=== PATIENT | female | born 1990 | race Caucasian/White ===

== ENCOUNTER → 2019-04-10 | Outpatient (CLI) | payer BC, OTHER ==
[2019-04-11 08:51] LABS: Alpha Fetoprotein (M.O.M) 1.53; Gestational Age (days) 3; Human Chorionic Gonadotropin 20.6 IU/mL; Inhibin A (M.O.M.) 1.09; Maternal Age at EDD (Yrs) 30; Smoker No; Unconjugated Estriol (M.O.M.) 1.65
== END | disposition home or self-care (01) ==
LOC: LABWHC1 13:06
PROVIDERS: ATTEND Obstetrics & Gynecology
DX: Z03.79 Encounter for other suspected maternal and fetal conditions ruled out (principal)
CPT/HCPCS: 36415; 82105; 82677; 84702; 86336

== ENCOUNTER 2019-05-23 22:02 | Outpatient (CLI) | payer MEDICAID, OTHER ==
[2019-05-23 23:10] VITALS: BP 140/77; PULSE 87; RESP 18; TEMP 97.3
--- NOTE | 2019-06-01 09:45 | P.MSEPDOC ---
Presenting Problems - Arrival Data Date of Arrival on Unit: 05/23/19 Time of Arrival on Unit: 22:02 Mode of Transport: Ambulatory - Complaint OB-Reason for Admission/Chief Complaint: Pain Comment: pt presents with cramping for the last 2 hours Medical History - Information : 3 Para: 1 Term: 1 : 0 Abortions: Spontaneous or Elective: 1 Number of Living Children: 1 - Gestational Age Gestational Age by BILL (wks/days): 25 Weeks and 4 Days - History Comment: LEEP procedure 10 yrs ago Review of Systems - Review of Systems Constitutional: No problems Breast: No problems ENT: No problems Cardiovascular: No problems Respiratory: No problems Gastrointestinal: No problems Genitourinary: No problems Musculoskeletal: No problems Neurological: No problems Skin: No problems Vital Signs - Temperature Temperature: 97.3 F Temperature Source: Temporal Artery Scan - Pulse Right Brachial Pulse Rate: 87 Pulse Assessment Method: Automatic Cuff - Respirations Respiratory Rate: 18 Oxygen Delivery Method: Room Air - Blood Pressure Right Arm Blood Pressure: 140/77 Blood Pressure Mean: 98 Blood Pressure Source: Automatic Cuff Medical Screen Scoring (Pre) - Cervical Exam Dilation: 0 cm = 0 Effacement: Exam Deferred Membranes: Intact - Uterine Contractions Frequency: N/A Duration: N/A Intensity: N/A - Maternal Vital Signs Maternal Temperature: N/A Maternal Blood Pressure: Systolic >139 = 2 Signs of Preeclampsia: N/A Maternal Respirations: N/A - Maternal Trauma Maternal Trauma: N/A - Assessment - Baby A Baseline FHR: 135 Heart Rate - NICHD Category: Category I (Normal) = 0 Position: N/A Station: N/A - Total Score - Baby A Total Score - Baby A: 2 - Total Score - Baby B Total Score - Baby B: 2 - Total Score - Baby C Total Score - Baby C: 2 - Level of Risk - Baby A Level of Risk - Baby A: Low (0-5) - Level of Risk - Baby B Level of Risk - Baby B: Low (0-5) - Level of Risk - Baby C Level of Risk - Baby C: Low (0-5) Physician Notification (Pre) - Physician Notified Physician Notified Date: 05/23/19 Physician Notified Time: 22:30 Physician/Practitioner Notifed:: Dr. Baxter Spoke With: Dr. Hurtubise New Order Received: Yes - Notification Comment Comment: discharge pt home, follow up at next scheduled appt or call office tomorrow if any other concerns, increase fluids, rest Disposition - Disposition OB Disposition: Triage, Discharge to home, Written follow up instructions reviewed Discharge Date: 05/23/19 Discharge Time: 22:50 I agree with the RN Medical Screening Exam: Yes Risk & Benefit of care provided described in d/c instruction: Yes Diagnosis: FALSE LABOR BEFORE 37 COMPLETED WEEKS OF GEST, THIRD TRI
== END 2019-05-23 22:50 | disposition home or self-care (01) ==
LOC: FBPOP 22:02
PROVIDERS: ATTEND Obstetrics & Gynecology
DX: O47.03 False labor before 37 completed weeks of gestation, third trimester (principal); Z3A.25 25 weeks gestation of pregnancy
CPT/HCPCS: 99213

== ENCOUNTER 2019-07-23 10:01 | Outpatient (CLI) | payer MEDICAID, OTHER, BC ==
[2019-07-23 12:11] VITALS: BP 113/72; PULSE 98; RESP 14; TEMP 97.3
== END 2019-07-23 12:10 | disposition home or self-care (01) ==
LOC: FBPOP 10:01
PROVIDERS: ATTEND Obstetrics & Gynecology
DX: O26.93 Pregnancy related conditions, unspecified, third trimester (principal); Z3A.34 34 weeks gestation of pregnancy
CPT/HCPCS: 59025; 99213

== ENCOUNTER 2019-08-07 19:35 | Outpatient (CLI) | payer MEDICAID, OTHER, BC ==
[2019-08-07 20:18] VITALS: BP 122/76; PULSE 110; RESP 16; TEMP 97.6
--- NOTE | 2019-09-01 11:18 | P.MSEPDOC ---
Presenting Problems - Arrival Data Date of Arrival on Unit: 08/07/19 Time of Arrival on Unit: 19:35 Mode of Transport: Ambulatory - Complaint OB-Reason for Admission/Chief Complaint: Possible Onset of Labor Medical History - Information : 3 Para: 1 Term: 1 : 0 Abortions: Spontaneous or Elective: 1 Number of Living Children: 1 - Gestational Age Gestational Age by BILL (wks/days): 36 Weeks and 3 Days Review of Systems - Review of Systems Constitutional: No problems Breast: No problems ENT: No problems Cardiovascular: No problems Respiratory: No problems Gastrointestinal: No problems Genitourinary: No problems Musculoskeletal: No problems Neurological: No problems Skin: No problems Vital Signs - Temperature Temperature: 97.6 F Temperature Source: Oral - Pulse Right Brachial Pulse Rate: 110 Pulse Assessment Method: Automatic Cuff - Respirations Respiratory Rate: 16 Oxygen Delivery Method: Room Air O2 Sat by Pulse Oximetry: 98 - Blood Pressure Right Arm Blood Pressure: 122/76 Blood Pressure Mean: 91 Blood Pressure Source: Automatic Cuff Medical Screen Scoring (Pre) - Cervical Exam Dilation: 1-3 cm = 1 Effacement: More than 50% = 2 Membranes: Intact - Uterine Contractions Frequency: N/A - Maternal Vital Signs Maternal Temperature: N/A Maternal Blood Pressure: N/A Signs of Preeclampsia: N/A Maternal Respirations: N/A - Maternal Trauma Maternal Trauma: N/A - Assessment - Baby A Baseline FHR: 130 Heart Rate - NICHD Category: Category I (Normal) = 0 NST: Reactive Position: N/A Station: N/A - Total Score - Baby A Total Score - Baby A: 3 - Total Score - Baby B Total Score - Baby B: 3 - Total Score - Baby C Total Score - Baby C: 3 - Level of Risk - Baby A Level of Risk - Baby A: Low (0-5) - Level of Risk - Baby B Level of Risk - Baby B: Low (0-5) - Level of Risk - Baby C Level of Risk - Baby C: Low (0-5) Physician Notification (Pre) - Physician Notified Physician Notified Date: 08/07/19 Physician Notified Time: 21:15 Physician/Practitioner Notifed:: Dr. England Spoke With: Dr. England New Order Received: Yes - Notification Comment Comment: Cervical exam shows 1cm dilitated. TOCO showing two contractions in thirty minutes. Aminisure is negative. RN spoke with Dr. England. Reported reactive NST, unchanged cervical exam,. contractions noted every 6-10 minutes. Patient remains comfortable. Vital signs WNL. states patient can be discharged home with instructions to return if needed. Discharge instructions relayed to patient. Patient is in agreement. Disposition - Disposition OB Disposition: Discharge to home Discharge Date: 08/07/19 Discharge Time: 21:25 I agree with the RN Medical Screening Exam: Yes Risk & Benefit of care provided described in d/c instruction: Yes Diagnosis: FALSE LABOR BEFORE 37 COMPLETED WEEKS OF GEST, THIRD TRI
== END 2019-08-07 20:25 | disposition home or self-care (01) ==
LOC: FBPOP 19:35
PROVIDERS: ATTEND Obstetrics & Gynecology
DX: O47.03 False labor before 37 completed weeks of gestation, third trimester (principal); Z3A.36 36 weeks gestation of pregnancy
CPT/HCPCS: 59025; 84112; 99213

== ENCOUNTER 2019-08-26 15:55 | Inpatient (IN) | payer BC, OTHER ==
[2019-08-26] MEDS ORDERED: OXYTOCIN 10 UNIT/ML 1 ML VIAL IM PRN (16:09)
[2019-08-26] MEDS ORDERED: CARBOPROST TROMETHAMINE 250 MCG/ML 1 ML AMP IM PRN (16:09)
[2019-08-26] MEDS ORDERED: PENICILLIN G POTASSIUM 5,000,000 UNIT in DEXTROSE 5% IN WATER 100 ML IVPB STA ×2 (16:09)
[2019-08-26] MEDS ORDERED: TERBUTALINE 1 MG/ML VIAL SQ PRN (16:09)
[2019-08-26] MEDS ORDERED: LIDOCAINE 0.5% (PF) 5 MG/ML (50 ML SDV) SQ PRN (16:09)
[2019-08-26] MEDS ORDERED: METHYLERGONOVINE 0.2 MG/ML 1 ML AMP IM PRN (16:09)
[2019-08-26] MEDS ORDERED: LACTATED RINGERS 1,000 ML IV SCH ×2 (16:15→19:15)
[2019-08-26 16:55] LABS: Basophils % (A) 0 %; Eosinophils # (A) 0.3 k/uL (0-0.7); Eosinophils % (A) 3 %; HCT 38.4 % (34.0-46.0); HGB 13.2 gm/dL (11.4-16.0); Lymphocytes # (A) 1.9 k/uL (1.0-4.8); Lymphocytes % (A) 19 %; MCH 31.7 pg (25.0-35.0); MCHC 34.3 g/dL (31.0-37.0); MCV 92.4 fL (80.0-100.0); Mean Platelet Volume 8.9; Monocytes # (A) 0.6 k/uL (0-1.0); Monocytes % (A) 6 %; Neutrophils # (A) 7.3 k/uL (1.3-7.7); Neutrophils % (A) 70 %; Platelet Count 195 k/uL (150-450); RBC 4.15 m/uL (3.80-5.40); RDW 13.5 % (11.5-15.5); WBC 10.4 k/uL (3.8-10.6)
[2019-08-26] MEDS ORDERED: OXYTOCIN 30 UNITS/500 ML NS 30 UNIT in SALINE 1 500ML.BAG IV SCH (17:00)
[2019-08-26] MEDS ORDERED: ROPIVACAINE 5MG/ML 20ML VIAL ONE (17:55)
[2019-08-26] MEDS ORDERED: SODIUM CHLORIDE 0.9% 100 ML BAG ONE (17:55)
[2019-08-26] MEDS ORDERED: fentaNYL (PF) 50 MCG/ML 5 ML AMP ONE (17:55)
[2019-08-26 18:59] VITALS: BMI 40.6
[2019-08-26] MEDS ORDERED: PENICILLIN G POTASSIUM 2,500,000 UNIT in DEXTROSE 5% IN WATER 100 ML IVPB SCH ×2 (20:30)
--- NOTE | 2019-08-26 21:17 | P.HPOB ---
History of Present Illness H&P Date: 08/26/19 Chief Complaint: I have been leaking fluid since 6:00 this morning This is a 29-year-old white female 4 para 10-1 EDC 10/02/2019 at 39 and one sevenths weeks' gestation. Patient had her routine scheduled office visit this afternoon at which time she reported that she has been leaking clear fluid since 0600 hrs. Pelvic exam was positive for abundant clear fluid with vernix, cervix was 3 cm dilated. Patient was sent from the office for direct admission. Past surgical history cholecystectomy, D&C, LEEP procedure 2008, wisdom teeth extracted. Past medical history significant for HSV, history of gonorrhea in 2009, and a history of depression in the past. Current medications acyclovir 400 mg pills twice daily, vitamin daily. ALLERGIES include sulfa drugs to which reports photosensitivity pain and redness of the eyes from eyedrops. Family history significant for diabetes lymphoma colon cancer cervical cancer aortic aneurysm and meningitis. Obstetric history is significant for blood type A+, rubella status nonimmune. One-hour Glucola 163, 3 hour GTT within normal limits. On exam she is 5 foot 2 inches, 222 pounds, blood pressure 138/80 on admission. General physical exam is within normal limits. Cervix on admission was 3 cm dilated, 80% effaced, -2 station, vertex presentation. heart rate consistent with reactive NST. No HSV lesions noted at this time. Impression: 39 and one sevenths weeks intrauterine , ruptured membranes, history of HSV with no active lesions noted. Plan: Oxytocin per hospital protocol. Epidural may be placed per patient's request. Close maternal and surveillance. Anticipate normal spontaneous vaginal delivery. Review of Systems Constitutional: Reports as per HPI Past Medical History Past Medical History: No Reported History History of Any Multi-Drug Resistant Organisms: None Reported Additional Past Surgical History / Comment(s): Leep procedure Past Psychological History: Anxiety, Depression Smoking Status: Never smoker Past Alcohol Use History: None Reported Past Drug Use History: None Reported Medications and Allergies Home Medications Medication Instructions Recorded Confirmed Type Acyclovir 400 mg PO BID 02/10/19 08/26/19 History Wxs-Jjka-Jryqq Acid 1 cap PO DAILY 02/10/19 08/26/19 History [-U Capsule (formulary)] Allergies Allergy/AdvReac Type Severity Reaction Status Date / Time Sulfa (Sulfonamide Allergy Unknown Verified 08/07/19 19:51 Antibiotics) Exam Vital Signs Temp Pulse Resp BP Pulse Ox 08/26/19 16:03 98.3 F 88 18 138/88 99 Intake and Output 08/26/19 08/26/19 08/26/19 06:59 14:59 22:59 Other: Weight 100.698 kg See dictation under HPI please Results Result Diagrams: 08/26/19 16:38 Assessment and Plan Assessment: 39 and one sevenths weeks intrauterine , early labor. History of HSV with no active lesions or prodrome. Plan: Oxytocin augmentation. Penicillin G prophylaxis. Epidural may be placed at patient's request. Close maternal and surveillance. Anticipate normal spontaneous vaginal delivery. Time with Patient: Less than 30
[2019-08-26] MEDS ORDERED: HYDROCORTISONE 2.5% RECTAL CREAM 30 GM TUBE RECTAL PRN (21:19)
[2019-08-26] MEDS ORDERED: LANOLIN CREAM 5 GM TUBE TOPICAL PRN (21:19)
[2019-08-26] MEDS ORDERED: SIMETHICONE 80 MG CHEWABLE PO PRN (21:19)
[2019-08-26] MEDS ORDERED: diphenhydrAMINE 50 MG CAP PO PRN (21:19)
[2019-08-26] MEDS ORDERED: BENZOCAINE/MENTHOL SPRAY 1 GM/SPRAY AEROSOL TOPICAL PRN (21:19)
[2019-08-26] MEDS ORDERED: HYDROcodone/APAP 5-325MG 1 EACH TAB PO PRN (21:19)
[2019-08-26] MEDS ORDERED: diphenhydrAMINE 25 MG CAP PO PRN (21:19)
[2019-08-26] MEDS ORDERED: WITCH HAZEL 1 EACH MED..PAD TOPICAL PRN (21:19)
[2019-08-26] MEDS ORDERED: diphenhydrAMINE ELIXIR 25 MG/10 ML CUP PO PRN (21:19)
[2019-08-26] MEDS ORDERED: ZOLPIDEM 5 MG TAB PO PRN (21:19)
[2019-08-26] MEDS ORDERED: diphenhydrAMINE 50 MG/ML 1 ML VIAL IVP PRN ×2 (21:19)
--- NOTE | 2019-08-26 21:19 | P.PROBDLV ---
Vaginal Delivery Note - . Vaginal Delivery Note: This is a 29-year-old white female 4 para 10-1 EDC 09/01/2019 at 39 and one sevenths weeks' gestation. Patient presented from the office with a history of spontaneous amniorrhexis which occurred earlier this morning. Clear fluid was noted in the office as well. No herpes prodrome or lesions noted. Please see dictated history and physical for details. Oxytocin augmentation was started per hospital protocol. Epidural was placed per her request. She progressed well through the first stage of labor and was judged to be completely dilated at 2015 hours. She began the second stage of labor at that time. She in the dorsal supine position. The perineal body was prepped and draped in usual sterile fashion. 's head delivered occiput anterior and he restituted accordingly. There was a nuchal cord 1 that was reduced on the perineal body. The right or anterior shoulder was delivered from underneath the pubic symphysis at which time the oropharynx, nasopharynx, and external nares were all bulb suctioned. Patient was officially delivered of a liveborn male infant with scores of 8 and 9 at one and 5 minutes respectively. time 2053 hours. The placenta delivered spontaneously, it was inspected and noted to be intact with trivascular cord at 2056 hours. Perineal body was redraped. Inspection of the cervix, vagina, perineum, periurethral, and perirectal areas revealed no lacerations and no defects. Fundus is firm and in the midline, symmetric and 18 week size upon completion of delivery. Estimated blood loss 300 mL's. Patient is requesting circumcision for her son. She is allowed to begin the bonding experience in the LDR.
[2019-08-26] MEDS ORDERED: OXYTOCIN 20 UNITS/1000 ML NS 1,000 ML IV SCH (21:30)
[2019-08-26] MEDS: ACETAMINOPHEN TAB 325 MG TAB PO PRN (21:51)
[2019-08-27] MEDS: IBUPROFEN 600 MG TAB PO PRN ×3 (01:18→17:39)
[2019-08-27] MEDS: ACETAMINOPHEN TAB 325 MG TAB PO PRN ×2 (04:35→14:56)
--- NOTE | 2019-08-27 07:52 | P.PN ---
Subjective Progress Note Date: 08/27/19 Principal diagnosis: day #1 Objective - Vital Signs Vital signs: Vital Signs Temp 98.1 F 08/27/19 04:00 Pulse 91 08/27/19 04:00 Resp 12 08/27/19 04:00 BP 133/75 08/27/19 04:00 Pulse Ox 97 08/27/19 04:00 Intake & Output 08/26/19 08/27/19 08/27/19 18:59 06:59 18:59 Output Total 300 Balance -300 Weight 100.698 kg Output: Estimated Blood Loss 300 Other: # Voids 2 - Constitutional General appearance: Present: average body habitus, cooperative - EENT Eyes: Present: PERRLA ENT: Present: hearing grossly normal - Neck Neck: Present: normal ROM Thyroid: bilateral: normal size - Respiratory Respiratory: bilateral: CTA - Cardiovascular Rhythm: regular - Gastrointestinal General gastrointestinal: Present: normal bowel sounds - Integumentary Integumentary: Present: normal - Neurologic Neurologic: Present: CNII-XII intact - Musculoskeletal Musculoskeletal: Present: gait normal, strength equal bilaterally - Psychiatric Psychiatric: Present: A&O x's 3, appropriate affect, intact judgment & insight - Labs CBC & Chem 7: 08/26/19 16:38 Assessment and Plan Assessment: Doing well day #1 Plan: Patient choosing to stay an additional day. Continue care. Circumc ision now. Likely discharge home tomorrow morning. Time with Patient: Less than 30
[2019-08-27] MEDS ORDERED: SENNOSIDES-DOCUSATE SODIUM 1 EACH TAB PO SCH (08:00)
[2019-08-27] MEDS ORDERED: MEASLES-MUMPS-RUBELLA VACC/PF 12,500 UNIT/0.5 ML VIAL SQ ONE (13:47)
[2019-08-27 16:30] VITALS: BP 136/80; PULSE 90; RESP 18; TEMP 98.1
--- NOTE | 2019-08-27 21:57 | DS ---
DISCHARGE SUMMARY DATE OF ADMISSION: 08/26/2019 ADMITTING DIAGNOSES: 1. Spontaneous amniorrhexis. 2. Thirty-nine and 1/7 weeks' gestation. DATE OF DISCHARGE: 08/27/2019 DISCHARGE DIAGNOSES: 1. Status post live-born male vaginal delivery. 2. Meconium fluid. This is a 29-year-old female, 4, para 1-0-2-1, EDC 09/01/2019, at 39-1/7 weeks' gestation. Patient presented to the office for her afternoon visit yesterday, at which time she suggested that she felt she was leaking fluid since 0600 hours. On a pelvic exam, clear vaginal fluid was noted, patient was 3 cm dilated, 80% effaced, vertex presentation. She was sent to Labor and Delivery for admission. Her history was remarkable for HSV infections, on Valtrex daily, with no prodrome or lesions noted. Blood type A positive. Group B strep culture is negative. Rubella status non-immune. Please see my dictated history and physical for details. Patient requested an epidural and this was placed without difficulty. She did consent to oxytocin augmentation. She progressed well through the first stage of labor and went on to deliver spontaneously a live-born male with scores of 8 and 9 at one and five minutes, respectively. There was a nuchal cord x1 that was reduced on the perineal body. Perineum was clean and dry; no lacerations or defects. Infant weighed 8 pounds 0 ounces, or 3640 grams. Estimated blood loss recorded of 300 mL. Please see dictated delivery note for details. This morning circumcision on the has been performed. Patient is doing well. She is voiding, ambulating, passing flatus without difficulty. Vital signs are stable and she is afebrile. is going well. Fundus is firm, midline, symmetric, 18-week size. Minimal lochia rubra. The patient is requesting discharge home. She will follow up with me in the office in 6 weeks. I have reminded her no intercourse, tampons or douching. She will use [id number] ibuprofen as needed for pain. I have asked her to call me with any fever, shakes or chills, foul-smelling or copious lochia, with the passage of large blood clots, or indeed with any concerns. She will continue taking her vitamin daily. We have briefly discussed options for contraception, and we will review this further in the office. MMODL / IJN: [id number] /
== END 2019-08-27 22:45 | disposition home or self-care (01) | DRG 806 ==
LOC: 4FBP 15:55
PROVIDERS: ADMIT Obstetrics & Gynecology; ATTEND Obstetrics & Gynecology
PROC: 10E0XZZ Delivery of Products of Conception, External Approach (ICD-10-PCS; principal; 2019-08-26)
PROC: 00HU33Z Insertion of Infusion Device into Spinal Canal, Percutaneous Approach (ICD-10-PCS; principal; 2019-08-26)
PROC: 3E0R3NZ Introduction of Analgesics, Hypnotics, Sedatives into Spinal Canal, Percutaneous Approach (ICD-10-PCS; principal; 2019-08-26)
DX: O69.81X0 Labor and delivery complicated by cord around neck, without compression, not applicable or unspecified (principal); O98.32 Other infections with a predominantly sexual mode of transmission complicating childbirth; Z37.0 Single live birth; A60.00 Herpesviral infection of urogenital system, unspecified; O77.0 Labor and delivery complicated by meconium in amniotic fluid; Z3A.39 39 weeks gestation of pregnancy; Z80.0 Family history of malignant neoplasm of digestive organs; Z80.49 Family history of malignant neoplasm of other genital organs; Z80.7 Family history of other malignant neoplasms of lymphoid, hematopoietic and related tissues; Z83.3 Family history of diabetes mellitus; Z88.2 Allergy status to sulfonamides
CPT/HCPCS: 85025; 86850; 86900; 86901; 90471; 90707

== ENCOUNTER → 2019-11-08 | Outpatient (CLI) | payer BC, OTHER ==
[2019-11-08 08:53] LABS: Basophils # (A) 0.1 k/uL (0-0.2); Basophils % (A) 1 %; Eosinophils # (A) 0.8 k/uL (0-0.7); Eosinophils % (A) 9 %; HCT 43.5 % (34.0-46.0); HGB 14.7 gm/dL (11.4-16.0); Lymphocytes # (A) 2.5 k/uL (1.0-4.8); Lymphocytes % (A) 27 %; MCHC 33.7 g/dL (31.0-37.0); Mean Platelet Volume 7.7; Monocytes # (A) 0.5 k/uL (0-1.0); Monocytes % (A) 5 %; Neutrophils # (A) 5.4 k/uL (1.3-7.7); Neutrophils % (A) 58 %; Platelet Count 277 k/uL (150-450); RBC 4.73 m/uL (3.80-5.40); RDW 12.6 % (11.5-15.5); WBC 9.3 k/uL (3.8-10.6)
== END | disposition home or self-care (01) ==
LOC: LABPAT 08:33
PROVIDERS: ATTEND Obstetrics & Gynecology
DX: Z01.812 Encounter for preprocedural laboratory examination (principal); Z31.84 Encounter for fertility preservation procedure
CPT/HCPCS: 36415; 85025

== ENCOUNTER 2019-11-11 07:38 | Day surgery (SDC) | payer BC, OTHER ==
--- NOTE | 2019-11-07 09:39 | HP ---
HISTORY AND PHYSICAL Surgery on Monday, November 11, 2019 This is a 29-year-old white female, 4, para 2-0-2-2, status post vaginal delivery 08/26/2019, who presents for permanent tubal sterilization. She and her desire no further childbearing. She understands that this procedure is meant to be permanent, however, does have a failure rate and accepts this potential. The risks of surgery have been thoroughly reviewed with the patient as well as the risks of anesthesia, and she would like to proceed. All questions answered. PAST MEDICAL HISTORY: Significant for depression, cholelithiasis, HSV, and gonorrhea in 2009. PAST SURGICAL HISTORY: Cholecystectomy, D and C, LEEP procedure, and wisdom teeth extracted. CURRENT MEDICATIONS: Escitalopram oxalate 10 mg tablet once daily. ALLERGIES: SULFA to which reports redness and photosensitivity, that would be a SULFA EYE DROP. FAMILY HISTORY: Significant for meningitis, diabetes, lymphoma, colon cancer, cervical cancer, and aortic aneurysm. OBSTETRIC HISTORY: Significant for missed AB x2, vaginal deliveries x2, most recently 08/26/2019. SOCIAL HISTORY: Patient is single, she is a smoker daily, she works for the [employer]. PHYSICAL EXAMINATION: On exam, this is a pleasant white female, 5 feet 2 inches, 197 pounds, blood pressure 112/70. HEENT exam reveals no thyromegaly, no cervical lymphadenopathy, normal dentition. Chest is clear to auscultation in all isbell anteriorly and posteriorly. Cardiac exam reveals regular rate and rhythm with no murmur, click, or rub. Breasts are bilaterally symmetric. There is nipple discharge consistent with recent vaginal delivery. There are no discernible lesions or masses, no axillary adenopathy. The abdomen is mildly obese, no organosplenomegaly, active bowel sounds. No CVA tenderness. Extremities reveal no edema, good peripheral pulses are noted. On pelvic exam, cervix is multiparous, uterus is small, anteverted, anteflexed, mobile, nontender, smooth. Adnexa are negative bilaterally, with no tenderness or enlargement. Rectal exam reveals good sphincter tone. IMPRESSION: Undesired fertility. PLAN: We will proceed with laparoscopic tubal ligation utilizing Filshie clips. The risks of surgery, including bleeding, infection, perforation or damage to bowel, bladder, ureters, blood vessels are all discussed in detail. The ACOG pamphlet on this procedure has been given to the patient for her thorough review. Again, she understands the permanent nature of this procedure, but also expects that there is a small but real failure rate with potential . If she ever finds herself amenorrheic or with the signs and symptoms of , she will contact the office immediately for recommendations. YOUSIF / ELMO: [id number] /
[2019-11-08 11:09] VITALS: BMI 36.2
[~2019-11-11 07:38] MED LIST: DEXAMETHASONE SOD PHOSPHATE 10 MG/ML 1 ML VIAL IV ONE; HYDROmorphone 0.5 MG/0.5 ML SYRINGE IVP PRN; LACTATED RINGERS 1,000 ML IV SCH; LIDOCAINE 1% 20 ML VIAL (10MG/ML) FOR IV START INTRADERMA PRN; MIDAZOLAM 2 MG/2 ML VIAL IV PRN; ONDANSETRON 4 MG/2 ML VIAL IVP ONE; Pre Op ABX Message 1 EACH MISC MISCELLANE ONE; fentaNYL (PF) 50 MCG/ML 2 ML AMP IV PRN
[2019-11-11] MEDS ORDERED: BUPIVACAINE (PF) 0.25% 30 ML VIAL SQ ONE ×2 (08:56→09:51)
[2019-11-11] MEDS ORDERED: SUCCINYLCHOLINE CHLORIDE 100 MG/5 ML SYR IV ONE (09:02)
[2019-11-11] MEDS ORDERED: NEOSTIGMINE 1 MG/ML 10 ML VIAL ONE (09:02)
[2019-11-11] MEDS ORDERED: ROCURONIUM BROMIDE 10 MG/ML 10 ML VIAL IV ONE (09:02)
[2019-11-11] MEDS ORDERED: diphenhydrAMINE 50 MG/ML 1 ML VIAL ONE (09:02)
[2019-11-11] MEDS ORDERED: HYDROmorphone (PF) 1 MG/ML ONE (09:02)
[2019-11-11] MEDS ORDERED: PROPOFOL 10 MG/ML 20 ML VIAL IV ONE (09:02)
[2019-11-11] MEDS ORDERED: MIDAZOLAM 2 MG/2 ML VIAL ONE (09:02)
[2019-11-11] MEDS ORDERED: fentaNYL (PF) 50 MCG/ML 2 ML AMP ONE (09:02)
[2019-11-11] MEDS ORDERED: KETOROLAC 30 MG/ML 1 ML VIAL ONE (09:02)
[2019-11-11] MEDS ORDERED: LIDOCAINE 1% INJ 10MG/ML (20 ML MDV) ONE (09:02)
[2019-11-11] MEDS ORDERED: GLYCOPYRROLATE 0.2 MG/ML 2 ML VIAL ONE (09:02)
--- NOTE | 2019-11-11 09:57 | P.OP ---
Date of Procedure: 11/11/19 Preoperative Diagnosis: undesired fertility Postoperative Diagnosis: essentially normal appearing female pelvis Procedure(s) Performed: laparoscopic tubal ligation with Filshie clips Anesthesia: BRIT Surgeon: Margarita Gr Estimated Blood Loss (ml): 50 IV fluids (ml): 300 Urine output (ml): 50 Pathology: none sent Condition: stable Disposition: PACU Description of Procedure: patient is brought to the operating suite where general anesthetic is administered without difficulty. She's placed in the dorsal lithotomy position. The appropriate timeout is performed to assure proper patient and procedural identification. The cervix, vagina, perineal body, and abdomen are all prepped and draped in usual sterile fashion. Urine hCG is negative. Bladder is drained for approximately 50 mL of clear yellow urine. Weighted speculum was placed into the vagina, anterior lip of the cervix is grasped with an Allis clamp. Desoto cannula is placed onto the cervix and attached to the clamp. Speculum is removed. Attention is now drawn to the abdominal wall. A small infraumbilical incision is made. Veress needle is placed and placement is checked with hanging drop technique. Abdomen is insufflated under low filling pressures of 6-9 mmHg for a total of 4.5 L of CO2 gas. The varies needle is removed. Trochars placed and placement is noted to be H or manic. Patient is now placed in Trendelenburg position. A second incision is made suprapubically, and a second trocar is placed under direct visualization, again entry is atraumatic. The uterus is now pushed into the pelvis and placed in a lateral position. The fimbriated end of the left fallopian tube is identified, and a Filshie clip is placed in the isthmic portion with care to traverse the entire diameter of the tube into the mesal salpinx. The same procedure is carried out contralaterally, again fimbriated and is visualized, and again isthmic portion is chosen with clip traversing the entire diameter of the tube into the mesal salpinx. Bilateral ovaries appear normal to inspection. Bilateral pelvic sidewalls, anterior posterior cul-de-sac, uterine surface, all inspected and noted to be clean with no evidence of adhesions or endometriosis. CO2 gas was allowed to diffuse. Trochars are removed under direct visualization and the fascial defects are clean and dry. 4-0 undyed Monocryl is used to close the small incisions. The suprapubic incision does have a small bleeder noted, this is cauterized with electrocautery for good hemostasis. A deeper vpclbo-sa-ifqva suture is placed in the suprapubic incision to aid in hemostasis. Subcuticular Monocryl is used for final closure. The wounds are injected with quarter percent Marcaine without epinephrine to aid in analgesia. The wounds are dressed. Instrumentation is removed from the vagina. All sponge needle and enhancement counts are correct at the end of the procedure. Patient is brought back to the recovery room in good condition with stable vital signs including a pulse of 69, blood pressure 127/84, 98% O2 saturation. Toradol is given prior to leaving the operative suite. Patient will follow-up with me in the office in 2 weeks.
[2019-11-11 10:08] VITALS: TEMP 98.6
[2019-11-11 10:57] VITALS: RESP 16
[2019-11-11] MEDS ORDERED: ACETAMINOPHEN TAB 500 MG TAB PO ONE (11:15)
[2019-11-11 11:20] VITALS: BP 121/82; PULSE 75
== END 2019-11-11 12:09 | disposition home or self-care (01) ==
LOC: OR 07:38
PROVIDERS: ATTEND Obstetrics & Gynecology
DX: Z30.2 Encounter for sterilization (principal); F32.9 Major depressive disorder, single episode, unspecified; Z86.19 Personal history of other infectious and parasitic diseases; Z79.899 Other long term (current) drug therapy; Z88.2 Allergy status to sulfonamides; Z83.3 Family history of diabetes mellitus; Z80.0 Family history of malignant neoplasm of digestive organs; Z80.7 Family history of other malignant neoplasms of lymphoid, hematopoietic and related tissues; Z80.49 Family history of malignant neoplasm of other genital organs; Z87.891 Personal history of nicotine dependence
CPT/HCPCS: 81025; 58671; J2250; J1200; J1100; J2710; J2405; J2001; J3010; J1885; J1170; J0330; J2704

== ENCOUNTER → 2024-12-03 | Outpatient (CLI) | payer BC ==
--- NOTE | 2024-12-03 15:33 | US ---
EXAMINATION TYPE: US kidneys/renal and bladder DATE OF EXAM: 12/03/2024 COMPARISON: NONE CLINICAL INDICATION: Female, 34 years old with history of R32 INCONTINENCE R33.9 DIFFICULTY EMPTYING BLADDER; Difficulty emptying bladder TECHNIQUE: Grayscale imaging of the bilateral kidneys and urinary bladder: FINDINGS: EXAM MEASUREMENTS: Right Kidney: 6.1x4.0x5.7 cm Left Kidney: 4.2x3.1x3.3 cm Post Void Residual Volume: 22 mL Right Kidney: No hydronephrosis or masses seen Left Kidney: No hydronephrosis or masses seen Bladder: wnl Bilateral Jets seen: Yes Normal Post Void Residual: Yes There is no evidence for hydronephrosis at this point in time. No nephrolithiasis is seen. No wilfrido s are identified. The urinary bladder is anechoic. IMPRESSION: No evidence for obstructive uropathy or renal calculus. [facility], , 12/03/2024 3:30 PM
== END | disposition home or self-care (01) ==
LOC: RADUSWWP 13:41
PROVIDERS: ATTEND Family Medicine
DX: R32 Unspecified urinary incontinence (principal); R33.9 Retention of urine, unspecified
CPT/HCPCS: 76770

== ENCOUNTER 2025-05-17 19:37 | Emergency (ER) | payer OTHER ==
--- NOTE | 2025-05-17 23:04 | ED ---
General Adult HPI - General Source: patient, RN notes reviewed Mode of arrival: ambulatory Limitations: no limitations <Cristy Giordano - Last Filed: 05/17/25 23:01> <Arnaldo Mendoza - Last Filed: 05/18/25 07:41> - General Chief complaint: Psychiatric Symptoms Stated complaint: Mental Health Eval Time Seen by Provider: 05/17/25 20:09 - History of Present Illness Initial comments: 34-year-old female presents to the emergency department for mental health evaluation. Patient states that she has a history of bipolar disorder. She has not been taking her medications as prescribed. She does state that she took her Vraylar today but has not taken it in a while prior to this. She notes that she has been seeing and experiencing things that she does not believe are real. Patient reports that she recently felt that there were people in her bedroom and this caused her to run from her home. She does have good insight to the events. She denies any SI or HI. (Cristy Giordano) - Related Data Home Medications Medication Instructions Recorded Confirmed Acyclovir 400 mg PO BID 02/10/19 11/11/19 Acetaminophen Tab [Tylenol Tab] 650 mg PO Q4H PRN 11/08/19 11/11/19 Escitalopram [Lexapro] 20 mg PO DAILY 11/08/19 11/11/19 Allergies Allergy/AdvReac Type Severity Reaction Status Date / Time Sulfa (Sulfonamide Allergy Unknown Verified 05/17/25 19:50 Antibiotics) Review of Systems ROS Other: All systems not noted in ROS Statement are negative. <Cristy Giordano - Last Filed: 05/17/25 23:01> ROS Other: All systems not noted in ROS Statement are negative. <Arnaldo Mendoza - Last Filed: 05/18/25 07:41> ROS Statement: Those systems with pertinent positive or pertinent negative responses have been documented in the HPI. Past Medical History Past Medical History: No Reported History History of Any Multi-Drug Resistant Organisms: None Reported Additional Past Surgical History / Comment(s): Leep procedure Past Psychological History: Anxiety, Depression Smoking Status: Vaper Past Alcohol Use History: Occasional Past Drug Use History: Marijuana <Cristy Giordano - Last Filed: 05/17/25 23:01> General Exam Limitations: no limitations General appearance: alert, in no apparent distress Head exam: Present: atraumatic, normocephalic, normal inspection Eye exam: Present: normal appearance, PERRL, EOMI. Absent: scleral icterus, conjunctival injection, periorbital swelling ENT exam: Present: normal exam, mucous membranes moist Neck exam: Present: normal inspection. Absent: tenderness, meningismus, lymphadenopathy Respiratory exam: Present: normal lung sounds bilaterally. Absent: respiratory distress, wheezes, rales, rhonchi, stridor Cardiovascular Exam: Present: regular rate, normal rhythm, normal heart sounds. Absent: systolic murmur, diastolic murmur, rubs, gallop, clicks Extremities exam: Present: normal inspection, full ROM, normal capillary refill. Absent: tenderness, pedal edema, joint swelling, calf tenderness Neurological exam: Present: alert, oriented X3 Psychiatric exam: Present: normal affect, normal mood Skin exam: Present: warm, dry, intact, normal color. Absent: rash <Cristy Giordano - Last Filed: 05/17/25 23:01> Course Vital Signs 05/17/25 05/18/25 19:48 03:58 Temperature 98.5 F 98.1 F Pulse Rate 109 H 79 Respiratory 18 17 Rate Blood Pressure 125/88 121/84 O2 Sat by Pulse 100 100 Oximetry Medical Decision Making <Cristy Giordano - Last Filed: 05/17/25 23:01> <Arnaldo Mendoza - Last Filed: 05/18/25 07:41> - Medical Decision Making Was pt. sent in by a medical professional or institution (TONIO Parrish, AMPOULE WASHING MACHINE OPERATOR, urgent care, hospital, or skilled nursing...) When possible be specific @ -[No] Did you speak to anyone other than the patient for history (EMS, parent, family, police, friend...)? What history was obtained from this source @ -[No] Did you review nursing and triage notes (agree or disagree)? Why? @ -[I reviewed and agree with nursing and triage notes] Were old charts reviewed (outside hosp., previous admission, EMS record, old EKG, old radiological studies, urgent care reports/EKG's, skilled nursing records)? Report findings @ -[No old charts were reviewed] Differential Diagnosis (chest pain, altered mental status, abdominal pain women, abdominal pain men, vaginal bleeding, weakness, fever, dyspnea, syncope, headache, dizziness, GI bleed, back pain, seizure, CVA, palpatations, mental health, musculoskeletal)? @ -Differential Mental Health Depression, anxiety, bipolar, psychosis, schizophrenia, borderline personality, situational depression, adjustment disorder, behavioral disorder, brain tumor, malingering, substance abuse, encephalopathy, medication reaction, dementia, hypothyroidism, degenerative neurologic disorder, lupus.... This is not meant to be all-inclusive list EKG interpreted by me (3pts min.). @ -None X-rays interpreted by me (1pt min.). @ -[None done] CT interpreted by me (1pt min.). @ -[None done] U/S interpreted by me (1pt. min.). @ -[None done] What testing was considered but not performed or refused? (CT, X-rays, U/S, labs)? Why? @ -[None] What meds were considered but not given or refused? Why? @ -[None] Did you discuss the management of the patient with other professionals (professionals i.e. , PA, AMPOULE WASHING MACHINE OPERATOR, lab, RT, psych nurse, social science manager, profiler, teacher, staff air tactical officer, rn case management)? Give summary @ -[No] Was smoking cessation discussed for >3mins.? @ -[No] Was critical care preformed (if so, how long)? @ -[No] Were there social determinants of health that impacted care today? How? (Homelessness, low income, unemployed, alcoholism, drug addiction, transportation, low edu. Level, literacy, decrease access to med. care, [facility], rehab)? @ -[No] Was there de-escalation of care discussed even if they declined (Discuss DNR or withdrawal of care, Hospice)? DNR status @ -[No] What co-morbidities impacted this encounter? (DM, HTN, Smoking, COPD, CAD, Cancer, CVA, ARF, Chemo, Hep., AIDS, mental health diagnosis, sleep apnea, morbid obesity)? @ -[None] Was patient admitted / discharged? Hospital course, mention meds given and route, prescriptions, significant lab abnormalities, going to OR and other pertinent info. @ -Patient presented emergency department for mental health evaluation. Patient was medically cleared and pending EPS evaluation. Undiagnosed new problem with uncertain prognosis? @ -[No] Drug Therapy requiring intensive monitoring for toxicity (Heparin, Nitro, In sulin, Cardizem)? @ -[No] Were any procedures done? @ -[No] Diagnosis/symptom? @ -[default] Acute, or Chronic, or Acute on Chronic? @ -[default] Uncomplicated (without systemic symptoms) or Complicated (systemic symptoms)? @ -[default] Side effects of treatment? @ -[No] Exacerbation, Progression, or Severe Exacerbation? @ -[No] Poses a threat to life or bodily function? How? (Chest pain, USA, [place], pneumonia, PE, COPD, DKA, ARF, appy, cholecystitis, CVA, Diverticulitis, Homicidal, Suicidal, threat to staff... and all critical care pts) @ -[No] (Cristy Giordano) Patient care signed out to me. Evaluated by EPS recommending inpatient psychiatric admission. Clinical certification completed. (Arnaldo Mendoza) Disposition <Cristy Giordano - Last Filed: 05/17/25 23:01> Time of Disposition: 07:41 <Arnaldo Mendoza - Last Filed: 05/18/25 07:41> Clinical Impression: Acute psychosis Disposition: TRANSFER TO PSYCH HOSP/UNIT Condition: Fair Referrals: Chico Segovia MD [Primary Care Provider] - 1-2 days
[2025-05-18 07:45] LABS: Amphetamine Screen,Urine Detected (NotDetected); Barbiturate Screen,Urine Not Detected (NotDetected); Benzodiazepines Screen,Urine Not Detected (NotDetected); Cocaine Screen,Urine Detected (NotDetected); Methadone Screen, Urine Not Detected (NotDetected); Opiate Screen,Urine Not Detected (NotDetected); Oxycodone Screen, Urine Not Detected (NotDetected); Phencyclidine Screen,Urine Not Detected (NotDetected); Tricyclic Antidepressant,Urine Not Detected (NotDetected); Urn Cannabinoid Scrn Detected (NotDetected)
[2025-05-18 16:24] VITALS: BP 120/79; PULSE 104; RESP 19; TEMP 98.2
== END 2025-05-18 16:20 ==
LOC: EC 19:37
DX: F23 Brief psychotic disorder (principal); F17.290 Nicotine dependence, other tobacco product, uncomplicated; Z88.2 Allergy status to sulfonamides
CPT/HCPCS: 80306; 81025; 82075; 99285

== ENCOUNTER 2025-05-27 17:50 | Emergency (ER) | payer OTHER ==
[2025-05-27] MEDS: ONDANSETRON 4 MG/2 ML VIAL IVP STA (18:32)
[2025-05-27] MEDS: MORPHINE SULFATE 4 MG/ML SYRINGE IVP STA ×2 (18:33→19:58)
[2025-05-27] MEDS: NITROGLYCERIN SL TABS 0.4 MG TAB SUBLINGUAL STA (18:34)
[2025-05-27] MEDS: GLUCAGON 1 MG/ML VIAL IVP STA ×2 (18:34→19:07)
[2025-05-27] MEDS: SODIUM CHLORIDE 0.9% 1,000 ML IV ONE (18:35)
[2025-05-27 18:42] LABS: HCT 42.0 % (37.2-46.3); HGB 13.9 g/dL (12.0-15.0); MCH 29.7 pg (27.0-32.0); MCHC 33.1 g/dL (32.0-37.0); MCV 89.7 fL (80.0-97.0); Platelet Count 336 10*3/uL (140-440); RBC 4.68 10*6/uL (4.10-5.20); RDW 13.0 % (11.5-14.5); WBC 16.05 10*3/uL (4.50-10.00)
[2025-05-27 18:49] LABS: HCG,Qualitative Serum Not Detected
[2025-05-27 18:55] LABS: ALT 22 U/L (4-34); AST 28 U/L (14-36); African American GFR (CKD) >90 (>60 ml/min/1.73 sqM); Albumin 4.9 g/dL (3.5-5.0); Alkaline Phosphatase 68 U/L (38-126); Anion Gap 13 mmol/L; Blood Urea Nitrogen 10 mg/dL (7-17); Calcium 9.6 mg/dL (8.4-10.2); Carbon Dioxide 23 mmol/L (22-30); Chloride 105 mmol/L (98-107); Glucose 88 mg/dL (74-99); Non-African American GFR(CKD) >90 (>60 ml/min/1.73 sqM); Potassium 3.7 mmol/L (3.5-5.1); Sodium 141 mmol/L (137-145); Total Protein 8.4 g/dL (6.3-8.2)
[2025-05-27 20:31] VITALS: BP 158/95; PULSE 86; RESP 20; TEMP 98.2
--- NOTE | 2025-05-27 20:46 | ED ---
General Adult HPI - General Chief complaint: Skin/Abscess/Foreign Body Stated complaint: vomiting phlem in throat Time Seen by Provider: 05/27/25 17:55 Source: patient Mode of arrival: ambulatory Limitations: no limitations - History of Present Illness Initial comments: 34-year-old female presents to the emergency department after she choked on a piece of chicken cordon blue. States that 20 minutes prior to hospital arrival she was eating when it felt like it got stuck. Patient cannot eat or drink at this point. Also cannot swallow her own phlegm. Patient has been retching. She has an emesis basin full of blood-streaked phlegm. She denies any shortness of breath. No difficulty speaking. Denies concern for . Denies hi story of any esophageal strictures or need for dilation in the past. She has never had an EGD. Does report that food frequently gets stuck but she usually can pass it. She did not take any medications before coming in. No other alleviating, precipitating or modifying factors - Related Data Home Medications Medication Instructions Recorded Confirmed No Known Home Medications 05/18/25 05/18/25 Allergies Allergy/AdvReac Type Severity Reaction Status Date / Time Sulfa (Sulfonamide Allergy Unknown Verified 05/18/25 15:29 Antibiotics) Review of Systems ROS Statement: Those systems with pertinent positive or pertinent negative responses have been documented in the HPI. ROS Other: All systems not noted in ROS Statement are negative. Past Medical History Past Medical History: No Reported History Additional Past Medical History / Comment(s): throat stricture History of Any Multi-Drug Resistant Organisms: None Reported Additional Past Surgical History / Comment(s): Leep procedure Past Psychological History: Anxiety, Depression Smoking Status: Vaper Past Alcohol Use History: Occasional Past Drug Use History: Marijuana General Exam General appearance: alert, anxious, in distress Head exam: Present: atraumatic, normocephalic, normal inspection Eye exam: Present: normal appearance, PERRL, EOMI. Absent: scleral icterus, conjunctival injection, periorbital swelling ENT exam: Present: normal exam, mucous membranes moist Neck exam: Present: normal inspection. Absent: tenderness, meningismus, lymphadenopathy Respiratory exam: Present: normal lung sounds bilaterally. Absent: respiratory distress, wheezes, rales, rhonchi, stridor Cardiovascular Exam: Present: regular rate, tachycardia GI/Abdominal exam: Present: soft, normal bowel sounds. Absent: distended, tenderness, guarding, rebound, rigid Psychiatric exam: Present: anxious, manic Skin exam: Present: warm, dry, intact, normal color. Absent: rash Course Vital Signs 05/27/25 05/27/25 05/27/25 17:53 18:04 19:01 Temperature 98 F 98.5 F Pulse Rate 126 H 76 Respiratory 26 H 18 18 Rate Blood Pressure 160/110 162/95 O2 Sat by Pulse 99 97 Oximetry 05/27/25 20:30 Temperature 98.2 F Pulse Rate 86 Respiratory 20 Rate Blood Pressure 158/95 O2 Sat by Pulse 97 Oximetry Medical Decision Making - Medical Decision Making Was pt. sent in by a medical professional or institution (, PA, FINANCIAL RESERVE CLERK, urgent care, hospital, or group home...) When possible be specific @ -No Did you speak to anyone other than the patient for history (EMS, parent, family, police, friend...)? What history was obtained from this source @ -No Did you review nursing and triage notes (agree or disagree)? Why? @ -I reviewed and agree with nursing and triage notes Were old charts reviewed (outside hosp., previous admission, EMS record, old EKG, old radiological studies, urgent care reports/EKG's, group home records)? Report findings @ -No old charts were reviewed Differential Diagnosis (chest pain, altered mental status, abdominal pain women, abdominal pain men, vaginal bleeding, weakness, fever, dyspnea, syncope, headache, dizziness, GI bleed, back pain, seizure, CVA, palpatations, mental health, musculoskeletal)? @ -Esophageal food bolus, airway obstruction, NC EKG interpreted by me (3pts min.). @ -Yes which demonstrates sinus rhythm with a rate of 76. ND interval 154. QRS 90. QTc of 453. No acute ST segment elevations or depressions X-rays interpreted by me (1pt min.). @ -None done CT interpreted by me (1pt min.). @ -None done U/S interpreted by me (1pt. min.). @ -None done What testing was considered but not performed or refused? (CT, X-rays, U/S, labs)? Why? @ - chest x-ray however patient refused What meds were considered but not given or refused? Why? @ -None Did you discuss the management of the patient with other professionals (professionals i.e. DrCatarina, PA, FINANCIAL RESERVE CLERK, lab, RT, psych nurse, social science manager, per diem nurse, teacher, chief communications officer, case packer)? Give summary @ -Spoke with Dr. Ott who accepted the patient as a transfer to the ER Was smoking cessation discussed for >3mins.? @ -No Was critical care preformed (if so, how long)? @ -No Were there social determinants of health that impacted care today? How? (Homelessness, low income, unemployed, alcoholism, drug addiction, transportation, low edu. Level, literacy, decrease access to med. care, [facility], rehab)? @ -No Was there de-escalation of care discussed even if they declined (Discuss DNR or withdrawal of care, Hospice)? DNR status @ -No What co-morbidities impacted this encounter? (DM, HTN, Smoking, COPD, CAD, Cancer, CVA, ARF, Chemo, Hep., AIDS, mental health diagnosis, sleep apnea, morbid obesity)? @ -None Was patient admitted / discharged? Hospital course, mention meds given and route, prescriptions, significant lab abnormalities, going to OR and other pertinent info. @ -Upon arrival patient seen and evaluated in room 33. Thorough history and p hysical exam was performed. Patient is anxious, in distress and screaming at staff. We did insert an IV. Patient is given Valium 5 mg, glucagon 1 mg, morphine 4 mg, 1 sublingual nitro, 4 mg of zofran and a liter of fluid. She has no improvement in her symptoms and therefore we did repeat with a second dose of Valium 5 mg, morphine 4 mg and 1 mg of glucagon. I did request an EKG and chest x-ray however patient refused due to her distress. The second round of medications does alleviate the patient's mood. She is able to sit still in bed. Discussed with her that I do not have capacity to keep the patient at our hospital due to lack of GI coverage. Recommended transfer to outside facility. Did recommend transfer to [facility] [place] for which the patient was agreeable. Called and spoke with Dr. Ott who was agreeable to transfer of the patient. COBRA forms are signed. Patient transferred in stable condition Undiagnosed new problem with uncertain prognosis? @ -No Drug Therapy requiring intensive monitoring for toxicity (Heparin, Nitro, Insulin, Cardizem)? @ -No Were any procedures done? @ -No Diagnosis/symptom? @ -Esophageal food bolus Acute, or Chronic, or Acute on Chronic? @ -Acute Uncomplicated (without systemic symptoms) or Complicated (systemic symptoms)? @ -Complicated Side effects of treatment? @ -No Exacerbation, Progression, or Severe Exacerbation? @ -No Poses a threat to life or bodily function? How? (Chest pain, USA, [place], pneumonia, PE, COPD, DKA, ARF, appy, cholecystitis, CVA, Diverticulitis, Homicidal, Suicidal, threat to staff... and all critical care pts) @ -Yes as patient does have an esophageal food bolus - Lab Data Result diagrams: 05/27/25 18:22 05/27/25 18:22 Lab Results 05/27/25 05/27/25 Range/Units 18:22 18:22 WBC 16.05 H (4.50-10.00) 10*3/uL RBC 4.68 (4.10-5.20) 10*6/uL Hgb 13.9 (12.0-15.0) g/dL Hct 42.0 (37.2-46.3) % MCV 89.7 (80.0-97.0) fL MCH 29.7 (27.0-32.0) pg MCHC 33.1 (32.0-37.0) g/dL Plt Count 336 (140-440) 10*3/uL MPV 10.3 (9.5-12.2) fL Immature Gran % (Auto) 0.3 % Immature Gran # 0.05 H (0.00-0.04) 10*3/uL Sodium 141 (137-145) mmol/L Potassium 3.7 (3.5-5.1) mmol/L Chloride 105 (98-107) mmol/L Carbon Dioxide 23 (22-30) mmol/L Anion Gap 13 mmol/L BUN 10 (7-17) mg/dL Creatinine 0.65 (0.52-1.04) mg/dL Est GFR (CKD-EPI)AfAm >90 (>60 ml/min/1.73 sqM) Est GFR (CKD-EPI)NonAf >90 (>60 ml/min/1.73 sqM) Glucose 88 (74-99) mg/dL Calcium 9.6 (8.4-10.2) mg/dL Total Bilirubin 1.1 (0.2-1.3) mg/dL AST 28 (14-36) U/L ALT 22 (4-34) U/L Alkaline Phosphatase 68 (38-126) U/L Total Protein 8.4 H (6.3-8.2) g/dL Albumin 4.9 (3.5-5.0) g/dL HCG, Qual Not Detected Disposition Clinical Impression: Esophageal foreign body Disposition: OTHER INSTITUTION NOT DEFINED Condition: Serious Is patient prescribed a controlled substance at d/c from ED?: No Referrals: Chico Segovia MD [Primary Care Provider] - 1-2 days Time of Disposition: 20:47 - Out of Hospital Transfer - Req. Specs Out of Hospital Transfer - Requested Specifics: Other Emergency Center [place] [place]
[2025-05-27 21:08] LABS: Eosinophils # (M) 0.48 k/uL (0-0.7); Lymphocytes # (M) 5.94 k/uL (1.0-4.8); Neutrophils # (M) 9.63 k/uL (1.3-7.7); Neutrophils % (M) 60 %; Total Cells Counted 100
[2025-05-27 21:09] LABS: RBC Morphology Normal
[2025-05-27] MEDS: LORazepam 1 MG/0.5 ML VIAL IV STA (21:19)
== END 2025-05-27 21:38 | disposition other institution (70) ==
LOC: EC 17:50
DX: T18.108A Unspecified foreign body in esophagus causing other injury, initial encounter (principal); F17.290 Nicotine dependence, other tobacco product, uncomplicated; Z88.2 Allergy status to sulfonamides; W44.9XXA Unspecified foreign body entering into or through a natural orifice, initial encounter
CPT/HCPCS: 36415; 93005; 80053; 85025; 84703; 99285; 96374; 96375; 96376; 96361; J2060; J2270; J1610; J3360; J2405